=== PATIENT | female | born 1985 | race Hispanic/Latino ===

== ENCOUNTER 2022-04-23 04:00 | Emergency (ER) | payer BC ==
[~2022-04-23] VITALS: Ht 157.5 cm; Wt 85.3 kg
[2022-04-23] MEDS ORDERED: BENZONATATE 100 MG CAPSULE PO ONE (04:23)
[2022-04-23] MEDS ORDERED: SOLU-MEDROL 40MG VIAL ONE (04:24)
[2022-04-23 04:30] LABS: BASOPHILS % (AUTO) 0.4 % (0.0-5.0); HEMATOCRIT 40.5 % (36-48); LYMPHOCYTES % (AUTO) 35.3 % (21.0-51.0); MEAN CORPUSCULAR HEMOGLOBIN 28.9 pg (27.0-33.0); MEAN CORPUSCULAR HGB CONC 33.1 g/dL (32.0-36.0); MEAN CORPUSCULAR VOLUME 87.3 fL (79-99); MONOCYTES % (AUTO) 8.2 % (3.0-13.0); PLATELET COUNT (AUTO) 277 K/uL (130-400); RED BLOOD CELL COUNT(AUTO) 4.64 MIL/uL (4.00-5.50); RED CELL DISTRIBUTION WIDTH 12.4 % (11.0-15.5); WHITE BLOOD COUNT (AUTO) 7.8 K/uL (4.8-10.8)
[2022-04-23] MEDS ORDERED: IPRATROPIUM/ALBUTEROL SULFATE 3 ML SOLUTION IH ONE (04:30)
[2022-04-23] MEDS ORDERED: SOLU-MEDROL 125MG VIAL IVP ONE (04:30)
[2022-04-23] MEDS ORDERED: BENZONATATE 100 MG CAPSULE PO SCH (04:30)
[2022-04-23 04:38] LABS: CREATININE 0.5 mg/dL (0.5-1.5); POTASSIUM 3.3 mmol/L (3.5-5.1)
[2022-04-23 04:45] LABS: ALBUMIN 3.6 g/dL (3.5-5.0); TOTAL PROTEIN, SERUM 7.4 g/dL (6.0-8.3)
[2022-04-23] MEDS ORDERED: POTASSIUM CHLORIDE 10% ELIXIR 20 MEQ/15 ML UDCUP PO ONE (05:30)
[2022-04-23] MEDS ORDERED: BENZ-39 PO (05:33)
[2022-04-23] MEDS ORDERED: ACET-2079 PO (05:33)
[2022-04-23 05:57] VITALS: BP 132/67
== END 2022-04-23 05:59 | disposition home or self-care (01) ==
LOC: EDH 04:00
DX: R05.9 Cough, unspecified (principal); J45.909 Unspecified asthma, uncomplicated; Z90.89 Acquired absence of other organs; Z90.49 Acquired absence of other specified parts of digestive tract; Z98.890 Other specified postprocedural states
CPT/HCPCS: 99284; 96374; 71045; 84484; 80053; 84703; 85025; 36415; 94640; J2920

== ENCOUNTER 2023-02-08 00:53 | Emergency (ER) | payer BC ==
[~2023-02-08] VITALS: Ht 157.5 cm; Wt 90.9 kg
[~2023-02-08 00:53] MED LIST: ACET-2079 PO; BENZ-39 PO
[2023-02-08] MEDS ORDERED: ONDANSETRON 4MG INJ ONE (01:09)
[2023-02-08] MEDS ORDERED: BENZONATATE 100 MG CAPSULE PO ONE ×2 (01:09→01:30)
[2023-02-08 01:25] LABS: BASOPHILS % (AUTO) 0.8 % (0.0-5.0); EOSINOPHILS % (AUTO) 10.3 % (0.0-8.0); HEMATOCRIT 45.2 % (36-48); LYMPHOCYTES % (AUTO) 25.2 % (21.0-51.0); MEAN CORPUSCULAR HEMOGLOBIN 28.6 pg (27.0-33.0); MEAN CORPUSCULAR HGB CONC 32.7 g/dL (32.0-36.0); MEAN CORPUSCULAR VOLUME 87.4 fL (79-99); MONOCYTES % (AUTO) 8.9 % (3.0-13.0); NEUTROPHILS % (AUTO) 54.4 % (40.0-77.0); PLATELET COUNT (AUTO) 329 K/uL (130-400); RED BLOOD CELL COUNT(AUTO) 5.17 MIL/uL (4.00-5.50); RED CELL DISTRIBUTION WIDTH 12.5 % (11.0-15.5); WHITE BLOOD COUNT (AUTO) 10.7 K/uL (4.8-10.8)
[2023-02-08] MEDS ORDERED: SOLU-MEDROL 125MG VIAL IVP ONE (01:30)
[2023-02-08] MEDS ORDERED: IPRATROPIUM/ALBUTEROL SULFATE 3 ML SOLUTION IH ONE ×2 (01:30)
[2023-02-08] MEDS ORDERED: ONDANSETRON 4MG INJ IVP ONE (01:30)
[2023-02-08 01:36] LABS: CREATININE 0.5 mg/dL (0.5-1.5); POTASSIUM 3.7 mmol/L (3.5-5.1)
[2023-02-08 01:41] LABS: ALBUMIN 3.5 g/dL (3.5-5.0); TOTAL PROTEIN, SERUM 7.9 g/dL (6.0-8.3)
[2023-02-08 02:29] VITALS: BP 132/74
[2023-02-08] MEDS ORDERED: ALBU90AE2 IH (02:58)
[2023-02-08] MEDS ORDERED: PRED20TA3 PO (02:58)
[2023-02-08] MEDS ORDERED: CEFU500T67 PO (02:58)
== END 2023-02-08 03:27 | disposition home or self-care (01) ==
LOC: EDH 00:53
DX: J45.901 Unspecified asthma with (acute) exacerbation (principal); Z79.52 Long term (current) use of systemic steroids
CPT/HCPCS: 99284; 96374; 71045; 96375; 80053; 84703; 85025; 36415; 94640; J2930; J2405

== ENCOUNTER 2023-07-24 08:02 | Emergency (ER) | payer BC ==
[~2023-07-24] VITALS: Ht 157.5 cm; Wt 93.0 kg
[~2023-07-24 08:02] MED LIST changes: +ALBU90AE2 IH; +CEFU500T67 PO; +PRED20TA3 PO
[2023-07-24 08:03] VITALS: BP 129/77; PULSE 69; RESP 18
[2023-07-24] MEDS ORDERED: IBUP-2071 PO (09:19)
== END 2023-07-24 09:25 | disposition home or self-care (01) ==
LOC: EDH 08:02
DX: S83.281A Other tear of lateral meniscus, current injury, right knee, initial encounter (principal); S86.911A Strain of unspecified muscle(s) and tendon(s) at lower leg level, right leg, initial encounter; J45.909 Unspecified asthma, uncomplicated; X58.XXXA Exposure to other specified factors, initial encounter; Y93.89 Activity, other specified; Y92.89 Other specified places as the place of occurrence of the external cause; Y99.8 Other external cause status
CPT/HCPCS: 73560

== ENCOUNTER 2023-07-26 21:50 | Emergency (ER) | payer BC ==
[~2023-07-26] VITALS: Ht 157.5 cm; Wt 93.0 kg
[~2023-07-26 21:50] MED LIST changes: +IBUP-2071 PO
[2023-07-26] MEDS ORDERED: SOLU-MEDROL 125MG VIAL IVP ONE (22:30)
[2023-07-26] MEDS ORDERED: IPRATROPIUM/ALBUTEROL SULFATE 3 ML SOLUTION IH ONE (22:30)
[2023-07-26 22:31] VITALS: PULSE 116; RESP 18
[2023-07-26 22:37] LABS: SARS-CoV-2, RNA, NAAT NEGATIVE SARS CoV-2 (NEGATIVE)
[2023-07-26 22:41] LABS: INFLUENZA TYPE B Negative For Type B (NEGATIVE)
[2023-07-26 22:50] LABS: INFLUENZA TYPE A Positive For Type A (NEGATIVE)
[2023-07-26 23:00] LABS: BASOPHILS # (AUTO) 0.03 K/uL (0.00-0.20); BASOPHILS % (AUTO) 0.5 % (0.0-5.0); EOSINOPHILS # (AUTO) 0.02 K/uL (0.00-0.70); EOSINOPHILS % (AUTO) 0.4 % (0.0-8.0); HEMATOCRIT 39.2 % (36-48); IMMATURE GRANULOCYTE ABSOLUTE 0.03 K/uL (0-1); LYMPHOCYTES # (AUTO) 0.3 K/uL (1.0-4.8); MEAN CORPUSCULAR HEMOGLOBIN 28.7 pg (27.0-33.0); MEAN CORPUSCULAR HGB CONC 32.9 g/dL (32.0-36.0); MEAN CORPUSCULAR VOLUME 87.3 fL (79-99); MONOCYTES # (AUTO) 0.5 K/uL (0.1-1.0); MONOCYTES % (AUTO) 8.9 % (3.0-13.0); NEUTROPHILS # (AUTO) 4.8 K/uL (1.8-7.7); NEUTROPHILS % (AUTO) 84.7 % (40.0-77.0); PLATELET COUNT (AUTO) 223 K/uL (130-400); RED BLOOD CELL COUNT(AUTO) 4.49 MIL/uL (4.00-5.50); RED CELL DISTRIBUTION WIDTH 12.7 % (11.0-15.5); WHITE BLOOD COUNT (AUTO) 5.6 K/uL (4.8-10.8)
[2023-07-26] MEDS ORDERED: 0.9%NACL 1000ML 3,000 ML IV ONE (23:00)
[2023-07-26 23:09] LABS: CREATININE 0.6 mg/dL (0.5-1.5); POTASSIUM 3.1 mmol/L (3.5-5.1)
[2023-07-26 23:14] LABS: ALBUMIN 3.3 g/dL (3.5-5.0); BILIRUBIN,TOTAL 0.3 mg/dL (0.2-1.0); TOTAL PROTEIN, SERUM 7.6 g/dL (6.0-8.3)
[2023-07-26 23:21] VITALS: BP 107/63
[2023-07-26 23:24] LABS: WBC MORPHOLOGY CONSISTENT W/DIFF
[2023-07-26 23:28] LABS: APPEARANCE,URINE CLEAR (CLEAR); BILIRUBIN,URINE NEGATIVE (NEGATIVE); COLOR,URINE LIGHT-YELLOW (YELLOW); GLUCOSE, URINE (UA) NEGATIVE (NEGATIVE); KETONES,URINE NEGATIVE (NEGATIVE); LEUKOCYTE ESTERASE ,URINE NEGATIVE Leu/uL (NEGATIVE); NITRATE,URINE NEGATIVE (NEGATIVE); OCCULT BLOOD,URINE NEGATIVE (NEGATIVE); PH,URINE 5.5 (5.0-8.0); PROTEIN,URINE NEGATIVE (NEGATIVE); UROBILINOGEN,URINE 0.2 mg/dL (0.2-1.0)
[2023-07-26 23:29] LABS: HCG,QUALITATIVE URINE NEGATIVE (NEGATIVE)
[2023-07-26 23:30] LABS: ADD UA MICROSCOPIC NO
[2023-07-26 23:45] VITALS: PULSE 99; RESP 16; O2SAT 98
[2023-07-27] MEDS ORDERED: ALBU90AE2 IH (00:01)
[2023-07-27] MEDS ORDERED: OSEL75 PO (00:01)
[2023-07-27] MEDS ORDERED: PRED20TA3 PO (00:02)
== END 2023-07-27 00:17 | disposition home or self-care (01) ==
LOC: EDH 21:50
DX: J45.901 Unspecified asthma with (acute) exacerbation (principal); J10.1 Influenza due to other identified influenza virus with other respiratory manifestations; E86.0 Dehydration; Z90.49 Acquired absence of other specified parts of digestive tract; Z20.822 Contact with and (suspected) exposure to COVID-19
CPT/HCPCS: 99284; 96374; 71045; 87635; 96361; 80053; 85025; 87040 ×2; 87804 ×2; 83605; 81003; 81025; 36415; 93005; 94640; C9803; J7030; J2930

== ENCOUNTER 2024-02-18 11:01 | Emergency (ER) | payer BC ==
[~2024-02-18] VITALS: Ht 157.5 cm; Wt 94.3 kg
[~2024-02-18 11:01] MED LIST changes: -ALBU90AE2 IH; +ALBU90AE3 IH; +OSEL75 PO
[2024-02-18 12:12] LABS: APPEARANCE,URINE CLEAR (CLEAR); BILIRUBIN,URINE NEGATIVE (NEGATIVE); COLOR,URINE LIGHT-YELLOW (YELLOW); GLUCOSE, URINE (UA) NEGATIVE (NEGATIVE); KETONES,URINE NEGATIVE (NEGATIVE); LEUKOCYTE ESTERASE ,URINE NEGATIVE Leu/uL (NEGATIVE); NITRATE,URINE NEGATIVE (NEGATIVE); OCCULT BLOOD,URINE NEGATIVE (NEGATIVE); PH,URINE 5.5 (5.0-8.0); PROTEIN,URINE NEGATIVE (NEGATIVE); UROBILINOGEN,URINE 0.2 mg/dL (0.2-1.0)
[2024-02-18 12:20] LABS: ADD UA MICROSCOPIC NO
[2024-02-18 12:22] LABS: HCG,QUALITATIVE URINE NEGATIVE (NEGATIVE)
[2024-02-18] MEDS: KETOROLAC 30MG VIAL (30MG/ML) IVP ONE (12:34)
[2024-02-18 12:54] LABS: BASOPHILS # (AUTO) 0.09 K/uL (0.00-0.20); BASOPHILS % (AUTO) 1.2 % (0.0-5.0); EOSINOPHILS # (AUTO) 0.69 K/uL (0.00-0.70); EOSINOPHILS % (AUTO) 9.1 % (0.0-8.0); HEMATOCRIT 40.2 % (36-48); IMMATURE GRANULOCYTE ABSOLUTE 0.01 K/uL (0-1); LYMPHOCYTES # (AUTO) 2.6 K/uL (1.0-4.8); MEAN CORPUSCULAR HEMOGLOBIN 28.2 pg (27.0-33.0); MEAN CORPUSCULAR HGB CONC 32.3 g/dL (32.0-36.0); MEAN CORPUSCULAR VOLUME 87.2 fL (79-99); MONOCYTES # (AUTO) 0.5 K/uL (0.1-1.0); MONOCYTES % (AUTO) 6.6 % (3.0-13.0); NEUTROPHILS # (AUTO) 3.7 K/uL (1.8-7.7); PLATELET COUNT (AUTO) 283 K/uL (130-400); RED BLOOD CELL COUNT(AUTO) 4.61 MIL/uL (4.00-5.50); RED CELL DISTRIBUTION WIDTH 12.5 % (11.0-15.5); WHITE BLOOD COUNT (AUTO) 7.6 K/uL (4.8-10.8)
[2024-02-18 13:07] LABS: CREATININE 0.5 mg/dL (0.5-1.0); POTASSIUM 3.8 mmol/L (3.5-5.1)
[2024-02-18 13:11] LABS: ALBUMIN 3.1 g/dL (3.5-5.0); BILIRUBIN,TOTAL 0.3 mg/dL (0.2-1.0); TOTAL PROTEIN, SERUM 6.7 g/dL (6.0-8.3)
[2024-02-18] MEDS ORDERED: IBUP-2077 PO (13:34)
[2024-02-18] MEDS ORDERED: CYCL10TA16 PO (13:34)
[2024-02-18] MEDS: CYCLOBENZAPRINE HCL 10 MG TABLET PO ONE (13:44)
[2024-02-18 14:16] VITALS: BP 109/66; PULSE 61; RESP 20; O2SAT 99
== END 2024-02-18 14:16 | disposition home or self-care (01) ==
LOC: EDH 11:01
DX: S29.012A Strain of muscle and tendon of back wall of thorax, initial encounter (principal); J45.909 Unspecified asthma, uncomplicated; Z90.49 Acquired absence of other specified parts of digestive tract; Z90.89 Acquired absence of other organs; X58.XXXA Exposure to other specified factors, initial encounter; Y93.89 Activity, other specified; Y92.89 Other specified places as the place of occurrence of the external cause; Y99.8 Other external cause status
CPT/HCPCS: 99284; 96374; 80053; 83690; 85025; 81003; 81025; 36415; J1885

== ENCOUNTER 2025-03-20 02:49 | Emergency (ER) | payer BC ==
[~2025-03-20] VITALS: Ht 157.5 cm; Wt 97.5 kg
[~2025-03-20 02:49] MED LIST changes: +CYCL10TA16 PO; +IBUP-2077 PO
--- NOTE | 2025-03-20 02:53 | NUR ---
PT PLACED IN ED ROOM 13 AT THIS TIME
[2025-03-20 03:21] VITALS: PULSE 97; RESP 19
[2025-03-20] MEDS: guaiFENesin-DM 200/20MG 10ML PO ONE (03:22)
[2025-03-20 03:31] LABS: IMMATURE GRANULOCYTE ABSOLUTE 0.03 K/uL (0-1); NUCLEATED RED BLOOD CELLS 0.0 % (0.0-0.19); PLATELET COUNT (AUTO) 341 K/uL (130-400); RED BLOOD CELL COUNT(AUTO) 5.03 MIL/uL (4.00-5.50); RED CELL DISTRIBUTION WIDTH 13.1 % (11.0-15.5); WHITE BLOOD COUNT (AUTO) 10.8 K/uL (4.8-10.8)
[2025-03-20 03:32] LABS: RAPID GROUP A STREP negative (NEGATIVE)
[2025-03-20 03:42] LABS: COVID19 (SARS ANTIGEN RAPID) PRESUMPTIVE NEGATIVE (NEGATIVE); INFLUENZA TYPE A Negative For Type A (NEGATIVE); INFLUENZA TYPE B Negative For Type B (NEGATIVE)
[2025-03-20] MEDS ORDERED: BENZ200C53 PO (04:08)
--- NOTE | 2025-03-20 04:10 | ERN ---
General Chief Complaint: Adult-Asthma Stated Complaint: WHEEZING, COUGH, CP, BACK PAIN Time Seen by MD: 02:52 Source: patient History of Present Illness Initial Comments Patient is a 40-year-old female with past medical history of asthma was cleaning with her house with Lysol detergent and she was exposed to a lot of dust plus the detergent fumes. This occurred four days ago and then two days ago patient has started to have a cough and an exacerbation of her asthma. She comes in with wheezing, coughing and difficulty breathing. No fevers no chills. Saturating well on room air. Timing/Duration: 1 week Allergies: Coded Allergies: No Known Allergies (Unverified Allergy, Unknown, 04/23/22) Home Meds Active Scripts Cyclobenzaprine HCl (Flexeril) 10 Mg Tab, 10 MG PO TID for muscle sstiffness, #14 TAB 0 Refills Prov:GWENDOLYN CASEY NP 02/18/24 Ibuprofen (Ibuprofen 800 mg Tab) 800 Mg Tab, 800 MG PO Q8H PRN for fever or pain, #30 TAB 0 Refills Prov:GWENDOLYN CASEY NP 02/18/24 Prednisone (Prednisone) 20 Mg Tablet, 1 TAB PO AD for 6 Days, #14 TAB 0 Refills TAKE 3 TAB BY MOUTH daily X3 DAYS, THEN TAKE 2 TAB BY MOUTH daily X2 DAYS, THEN TAKE 1 TAB BY MOUTH ONCE A DAY X1 DAY. Prov:FARSHAD MINER MD 07/27/23 Oseltamivir Phosphate (Tamiflu) 75 Mg Cap, 75 MG PO BID, #10 CAP Prov:FARSHAD MINER MD 07/27/23 Albuterol Sulfate (Proair Digihaler) 90 Mcg Aer.pw.bas, 2 PUFF IH QID, #1 UNIT Prov:FARSHAD MINER MD 07/27/23 Ibuprofen (Ibuprofen) 800 Mg Tablet, 800 MG PO Q8H PRN for PAIN, #30 TAB 0 Refills Prov:CLIFTON WILDER MD 07/24/23 Prednisone (Prednisone) 20 Mg Tablet, 1 TAB PO AD for 6 Days, #14 TAB 0 Refills TAKE 3 TAB BY MOUTH daily X3 DAYS, THEN TAKE 2 TAB BY MOUTH daily X2 DAYS, THEN TAKE 1 TAB BY MOUTH ONCE A DAY X1 DAY. Prov:FARSHAD MINER MD 02/08/23 Albuterol Sulfate (Proair Digihaler) 90 Mcg Aer.pw.bas, 2 PUFF IH QID, #1 UNIT Prov:FARSHAD MINER MD 02/08/23 Cefuroxime Axetil (Cefuroxime) 500 Mg Tablet, 500 MG PO BID, #20 TAB Prov:FARSHAD MINER MD 02/08/23 Benzonatate (Tessalon Perles) 100 Mg Cap, 200 MG PO TID for cough, #30 CAP 0 Refills Prov:TINA DENNY MD 04/23/22 Acetaminophen with Codeine (Acetaminophen-Cod #3 Tablet) 1 Each Tablet, 1 TAB PO Q4H PRN for cough, #16 TAB 0 Refills Prov:TINA DENNY MD 04/23/22 Past Medical History Past Medical History: Asthma Past Surgical History: Tonsillectomy, Cholecystectomy, Surgical History Other: SKIN BIOPSY; LAPARASCOPY Family History Family History: Negative Social History Social History: Negative, Lives with family Female( History) History: Not Applicable LMP: Feb 23, 2025 Constitutional: (-) chills, (-) diaphoresis, (-) fever, (-) malaise, (-) weakness, (-) other documentation EENTM: (-) eye pain, (-) blurred vision, (-) tearing, (-) double vision, (-) ear pain, (-) ear discharge, (-) nose pain, (-) nose congestion, (-) throat pain, (-) Throat swelling, (-) mouth pain, (-) tooth pain, (-) mouth swelling, (-) other documentation Respiratory: (+) cough, (+) stridor, (+) wheezing Cardiovascular: (-) chest pain, (-) edema, (-) palpitations, (-) syncope, (-) dyspnea on exertion, (-) other documentation Gastrointestinal/Abdominal: (-) nausea, (-) vomiting, (-) diarrhea, (-) abdominal pain, (-) abdominal distention, (-) constipation, (-) rectal bleeding, (-) dark stool/melena, (-) other documentation Musculoskeletal: (-) Neck pain, (-) back pain, (-) Flank Pain, (-) joint pain, (-) joint swelling, (-) muscle pain, (-) muscle stiffness, (-) gout, (-) other documentation Physical Exam General Appearance: (+) mild distress Orientation: (+) oriented x 3 Head/Face Trauma: No Eye: bilateral eye normal inspection, bilateral eye PERRL, bilateral eye EOMI Ear, Nose, Throat: (+) hearing grossly normal, (+) normal ENT inspection, (+) moist mucous membraine Neck: (+) normal inspection, (+) supple, (+) full range of motion Respiratory: (+) decreased breath sounds, (+) stridor, (+) wheezing Respiratory Comment Wheezing right worse than left. Heart: (+) regular, (+) no gallop Vascular: (+) no edema, (+) normal peripheral pulse Gastrointestinal: (+) soft, (+) non-tender, (+) bowel sound present Results Laboratory and Microbiology Lab and Micro Result Laboratory Tests Test 03/20/25 03:02 03/20/25 03:17 White Blood Count 10.8 K/uL (4.8-10.8) Red Blood Count 5.03 MIL/uL (4.00-5.50) Hemoglobin 14.8 g/dL (12.0-16.0) Hematocrit 44.0 % (36-48) Mean Corpuscular Volume 87.5 fL (79-99) Mean Corpuscular Hemoglobin 29.4 pg (27.0-33.0) Mean Corpuscular Hemoglobin Concent 33.6 g/dL (32.0-36.0) Red Cell Distribution Width 13.1 % (11.0-15.5) Platelet Count 341 K/uL (130-400) Mean Platelet Volume 9.7 fL (7.5-10.5) Immature Granulocyte % (Auto) 0.3 % (0-1) Neutrophils (%) (Auto) 57.4 % (40.0-77.0) Lymphocytes (%) (Auto) 21.5 % (21.0-51.0) Monocytes (%) (Auto) 7.1 % (3.0-13.0) Eosinophils (%) (Auto) 12.9 % (0.0-8.0) H Basophils (%) (Auto) 0.8 % (0.0-5.0) Neutrophils # (Auto) 6.2 K/uL (1.8-7.7) Lymphocytes # (Auto) 2.3 K/uL (1.0-4.8) Monocytes # (Auto) 0.8 K/uL (0.1-1.0) Eosinophils # (Auto) 1.39 K/uL (0.00-0.70) H Basophils # (Auto) 0.09 K/uL (0.00-0.20) Absolute Immature Granulocyte (auto 0.03 K/uL (0-1) Nucleated Red Blood Cells 0.0 % (0.0-0.19) Influenza Type A Antigen Negative For Type A Influenza Type B Antigen Negative For Type B SARS-CoV-2 Antigen (Rapid) PRESUMPTIVE NEGATIVE Group A Streptococcus Rapid negative (NEGATIVE) MDM MDM: Differential diagnosis: Asthma exacerbation, upper respiratory tract infection, chemical irritation, pneumonia Rationale: Tests considered and ordered secondary to shared decision making include: Previous outside records reviewed: Old ER visits. Risk of complication and/or morbidity or mortality of patient management: None Medications-Per medication reconciliation Need for hospitalization: Patient does meet criteria for hospitalization. Need for emergency major/minor surgery: No There are no social concerns with this patient. Prescription drug management Prescriptions will include symptomatic care Patient's prior external medical records from other ER visits were reviewed by me as indicated. Prior testing and results from previous visits were reviewed. Prior tests were taken into account with medical decision making and resource utilization, independent historian/historians were used to obtain complete me dical history. I independently interpreted the test that were performed, results were reviewed by me and considered findings on radiology if ordered. Patient's nasal swabs negative for strep COVID and influenza. Patient's white blood cell counts normal. Patient's chest x-ray shows some chronic fibrotic changes no infiltrates or consolidation. Patient's breathing improved with a DuoNeb and a steroid injection. She feels ready to go home. ED Course Orders Procedure Category Date Status Time Guaifenesin-Dm PHA 03/20/25 Complete 200/20mg 10ml 03:30 Ipratropium/Albuterol PHA 03/20/25 Complete Neb (Duoneb) 03:30 Chest 1vw RAD 03/20/25 Taken 03:05 Covid19 (Sars Antigen LAB 03/20/25 Complete Rapid) 03:05 Influenza Type A & B, LAB 03/20/25 Complete Rapid 03:05 Rapid (Group A Strep) LAB 03/20/25 Complete 03:05 Cbc With Differential LAB 03/20/25 Complete 03:05 Methylprednisolone PHA 03/20/25 Complete Succ 125mg (Solu-Medr 03:30 Current Medications Medications (Trade) Dose Ordered Sig/Ashli Route PRN Reason Start Time Stop Time Status Last Admin Dose Admin Albuterol (DUOneb) 1 UDVIAL ONCE ONCE IH 03/20/25 03:30 03/20/25 03:31 DC 03/20/25 03:20 Guaifenesin/ Dextromethorphan (RobiTUSSin DM 200/20MG 10ML) 10 ml ONCE ONCE PO 03/20/25 03:30 03/20/25 03:31 DC 03/20/25 03:22 Methylprednisolone Sodium Succinate (Solu-medROL 125MG) 80 mg ONCE ONCE IVP 03/20/25 03:30 03/20/25 03:31 DC 03/20/25 03:21 Vital Signs Date Time Temp Pulse Resp B/P (MAP) Pulse Ox O2 Delivery O2 Flow Rate FiO2 03/20/25 03:21 97 19 03/20/25 03:06 98.4 105 17 146/89 98 Room Air* 0 21 03/20/25 02:51 97.9 107 20 142/91 96 Room Air DX & DISP Disposition: Discharge Departure Impression: Primary Impression: Asthma exacerbation Additional Impression: Cough Condition: Stable Scripts Benzonatate (Benzonatate) 200 Mg Capsule 1 CAP PO TID for cough for 10 Days, #30 CAP 0 Refills Prov: VITOR ORTIZ MD 03/20/25 Additional Instructions: You either have a new upper respiratory tract infection or a an exacerbation of your asthma from the house cleaning. Your nasal swabs are negative for COVID influenza and strep. Your chest x-ray does not show any new infiltrates. And your white blood cell count is normal; however, you do have an increased percentage of eosinophils which is a cell that is associated with allergic reactions. I have written for Guadalupe Zapata to help with the cough. Please use both of your asthma medications at home the DuoNeb plus the asthma. Stay well hydrated to help your lungs clear the secretions. Please see your primary care physician if you do not get better in the next several days. Referrals: BEATA PEREZ MD (PCP) VITOR ORTIZ MD Mar 20, 2025 04:10
[2025-03-20 04:11] VITALS: BP 145/75; PULSE 88; RESP 17; TEMP 98.5; O2SAT 99
--- NOTE | 2025-03-20 05:02 | HMCIMG ---
EXAM: CR Chest, 1 view CLINICAL HISTORY: Cough. COMPARISON: Chest radiograph dated 07/26/2023. FINDINGS: The lungs show no infiltrates or other acute findings. No pleural effusion or pneumothorax. The cardiomediastinal silhouette is within normal limits. No acute osseous abnormality. IMPRESSION: No acute cardiopulmonary process is evident. No adverse interval changes. /Morgan
== END 2025-03-20 04:19 | disposition home or self-care (01) ==
LOC: EDH 02:49
DX: J45.901 Unspecified asthma with (acute) exacerbation (principal); R05.9 Cough, unspecified; Z90.49 Acquired absence of other specified parts of digestive tract; Z90.89 Acquired absence of other organs; Z20.822 Contact with and (suspected) exposure to COVID-19
CPT/HCPCS: 99284; 96374; 71045; 87426; 85025; 87880; 87804 ×2; 36415; 94640; J2919